=== PATIENT | female | born 1945 | race Asian ===

== ENCOUNTER → 2021-12-20 | Outpatient (CLI) | payer MEDICARE | END | disposition home or self-care (01) | LOC: RADMN 16:29 | PROVIDERS: ATTEND Internal Medicine Geriatric Medicine | DX: M16.11 Unilateral primary osteoarthritis, right hip (principal); M25.552 Pain in left hip; M25.551 Pain in right hip | CPT/HCPCS: 73502; 73503; 73521 ==